=== PATIENT | female | born 1990 | race Caucasian/White ===

== ENCOUNTER 2024-06-06 14:37 | Emergency (ER) | payer OTHER, SELFPAY ==
[2024-06-06 14:51] VITALS: BP 128/80; PULSE 73; O2SAT 100
[2024-06-06 15:25] VITALS: BP 117/87; PULSE 78; RESP 16; TEMP 36.7; O2SAT 98; BMI 33.2
--- NOTE | 2024-06-06 15:37 | ED.GENADULT ---
HPI - General Adult General Chief complaint: Headache Stated complaint: MIGRAIN,NAUSEA,VOMITING PER EMS Source: patient Mode of arrival: ambulatory Limitations: no limitations History of Present Illness HPI narrative: Patient left without completion of treatment by ED provider Related Data Allergies Allergy/AdvReac Type Severity Reaction Status Date / Time levofloxacin [From [facility]] Allergy Intermediate SWELLING Unverified 06/06/24 15:27 PMFSH Social History Social History Advance Directives: No Advance Directives Information Provided: No Physical Exam ED Vital Signs: Vital Signs - 24 hr 06/06/24 15:25 Temperature 98.1 F Pulse Rate 78 Respiratory Rate 16 Blood Pressure 117/87 Pulse Oximetry 98 Oxygen Delivery Method Room Air BMI result Body Mass Index 33.2 Course Course Course Narrative: RME: Done by [employer] Palmer. Presents to the ED for migraines exacerbation. patient states usual migraine exacerbation improved with IV medication. Patient denies any new trauma or any stroke-like symptoms. NIH score is 0. Patient is to go to [facility]. Discharge Plan Discharge Clinical Impression: Migraine Patient Disposition: Left W/O Completing Treatment Discharge Date/Time: 06/06/24 20:25
== END 2024-06-06 20:25 | disposition left against medical advice (07) ==
LOC: HO.ED 20:22
PROVIDERS: Emergency Provider Emergency Medicine
DX: G43.909 Migraine, unspecified, not intractable, without status migrainosus (principal)
CPT/HCPCS: 99281